=== PATIENT | female | born 1980 | race Caucasian/White ===

== ENCOUNTER 2018-05-08 19:22 | Emergency (ER) | payer OTHER ==
[2018-05-08 19:30] VITALS: BP 110/73; PULSE 90; TEMP 98.7; BMI 20.1
[2018-05-08 20:28] LABS: PH,URINE 6.5 (4.5-8); URINE APPEARANCE Clear; URINE BILIRUBIN Negative (NEGATIVE); URINE COLOR Yellow; URINE GLUCOSE (UA) Negative (NEGATIVE); URINE KETONE Negative (NEGATIVE); URINE LEUK ESTERASE Negative (NEGATIVE); URINE NITRITE Negative (NEGATIVE); URINE PROTEIN Negative (NEGATIVE); URINE UROBILINOGEN 0.2 (0.2-1.0)
[2018-05-08 20:40] LABS: EPI CELLS 1+ /HPF; URINE WBC 0-2 (0-5)
[2018-05-08 20:41] LABS: URINE BACTERIA NONE SEEN /hpf (NEGATIVE)
[2018-05-08 20:42] LABS: ALBUMIN 4.6 g/dl (3.5-5.0); ALK PHOS 39 U/L (32-92); ANION GAP 9 MMOL/L (8-16); BILIRUBIN,TOTAL 0.7 mg/dl (0.2-1.0); BLOOD UREA NITROGEN 13 mg/dl (7-18); CALCIUM 9.4 mg/dl (8.4-10.2); CHLORIDE 100 mmol/L (98-107); CO2 26 mmol/L (22-28); CREATININE 0.7 mg/dl (0.6-1.3); GLUCOSE,RANDOM 92 mg/dl (74-106); POTASSIUM 3.7 mmol/L (3.5-5.1); SGOT/AST 28 U/L (10-42); SGPT/ALT 26 U/L (10-40); SODIUM 135 mmol/L (136-145); TOT PROT 7.2 g/dl (6.4-8.3)
[2018-05-08 20:45] LABS: BASO % 0.5 % (0-2.0); EOS % 0.5 % (0-4.5); HEMATOCRIT 40.8 % (32.4-45.2); HEMOGLOBIN 13.9 GM/dl (10.7-15.3); LYMPH % 27.8 % (8-40); MCH 31.9 pg (25.7-33.7); MCHC 34.2 g/dl (32.0-36.0); MEAN CELL VOLUME 93.4 fl (80-96); MEAN PLT VOLUME 9.1 fl (7.5-11.1); MONO % 5.8 % (3.8-10.2); NEUT % 65.4 % (42.8-82.8); PLATELET COUNT 227 K/MM3 (134-434); RBC 4.37 M/mm3 (3.60-5.2); RDW 11.9 % (11.6-15.6); WHITE BLOOD COUNT 10.6 K/mm3 (4.0-10.8)
[2018-05-08 20:47] LABS: INR 1.08 (0.82-1.09); PROTHROMBIN TIME (PATIENT) 12.1 SEC (10.2-13.0)
--- NOTE | 2018-05-08 21:09 | PDOC ---
History of Present Illness - History of Present Illness Initial Comments: CHRIST 37 YOF, 8 wks () with pmh of roderick thyroiditis (on synthroid) who presents to the emergency department complaining of intermittent vaginal spotting since earlier today. Patient complains of intermittent bright red streaking with mild light cramping. Patient had 1st trimester US 05/04/18 with OBGYN that showed subchorionic hematoma and live IUP. Patient notes it was a natural , with prior IVF but not currently. Denies n/v/d, chest pain and SOB, faintness/dizziness, back pain, and urinary changes. No NKDA. Denies EtOh, drug, tobacco use. 05/08/18 21:55 <Carol De Dios - Last Filed: 05/08/18 21:55> - General History Source: Patient Exam Limitations: No Limitations <Shawanda Balderrama - Last Filed: 05/08/18 22:59> - General Chief Complaint: Vaginal Bleeding Stated Complaint: SPOTTING Time Seen by Provider: 05/08/18 19:33 Past History <Carol De Dios - Last Filed: 05/08/18 21:55> - Past Medical History COPD: No Thyroid Disease: Yes (HASHIMOTOS) - Suicide/Smoking/Psychosocial Hx Smoking History: Never smoked <Shawanda Balderrama - Last Filed: 05/08/18 22:59> - Past Medical History Allergies/Adverse Reactions: Allergies Allergy/AdvReac Type Severity Reaction Status Date / Time nickel Allergy Verified 05/08/18 19:24 thimerosal Allergy Verified 05/08/18 19:24 GOLD Allergy Uncoded 05/08/18 19:25 Home Medications: Ambulatory Orders Levothyroxine [Synthroid -] 75 mcg PO DAILY 05/08/18 Multivitamins [Tab-A-Vit -] 1 tab PO DAILY 05/08/18 Review of Systems - Review of Systems Able to Perform ROS?: Yes Comments:: Constitutional: no fevers or chills. HEENT: no headache or dizziness. No congestion. No visual/hearing disturbances. CVS: no cp or syncope. Resp: no sob. No cough. Abdomen: +mild abdominal cramping. no nausea or vomiting. Genitourinary: +Vaginal bleeding. no urinary sx, hematuria. MUSCULOSKELETAL: No joint pain and swelling. No neck or back pain. SKIN: no redness or skin changes, no discharge, no rash. No wounds. Hematologic: no easy bruising/bleeding. NEUROLOGIC: No headache, dizziness, LOC or altered mental status. No weakness, numbness or tingling. All other systems reviewed and negative, or as documented in HPI. 05/08/18 21:56 <Carol De Dios - Last Filed: 05/08/18 21:55> *Physical Exam - Vital Signs Last Vital Signs Temp Pulse Resp BP Pulse Ox 98.7 F 90 16 110/73 100 05/08/18 19:26 05/08/18 19:26 05/08/18 19:26 05/08/18 19:26 05/08/18 19:26 - Physical Exam Comments: General: Well appearing, awake and alert, NAD. HEENT: NCAT, PERRL, EOMI, clear conjunctiva, anicteric, moist mucus membranes, clear oropharynx, no oral lesions.. Neck: neck supple, FROM Resp: CTAB, normal and even respirations, no respiratory distress CVS: RRR, no murmurs, 2+ peripheral pulses throughout, no peripheral edema Abdomen: soft, NTND, no peritoneal signs. Female : normal external genitalia, no lesions, scant brown discharge in vaginal vault, no CMT, no adnexal tenderness. Smooth and pink cervix, closed. Back: no CVA tenderness. nontender, normal inspection and ROM MSK: no edema, IZQUIERDO x4, ROM intact. No clubbing or cyanosis. normal bulk and tone. Extrem: no calf tenderness Neuro: alert, oriented appropriately; no focal neurologic deficits Skin: warm and well perfused, cap refill <2 sec, normal color 05/08/18 21:56 <Carol De Dios - Last Filed: 05/08/18 21:55> - Vital Signs Last Vital Signs Temp Pulse Resp BP Pulse Ox 98.7 F 90 16 110/73 100 05/08/18 19:26 05/08/18 19:26 05/08/18 19:26 05/08/18 19:26 05/08/18 19:26 <Shawanda Balderrama - Last Filed: 05/08/18 22:59> ED Treatment Course - LABORATORY CBC & Chemistry Diagram: 05/08/18 20:20 05/08/18 20:15 - ADDITIONAL ORDERS Additional order review: Laboratory Results 05/08/18 05/08/18 05/08/18 20:20 20:15 20:15 PT with INR 12.1 INR 1.08 Sodium 135 L Potassium 3.7 Chloride 100 Carbon Dioxide 26 Anion Gap 9 BUN 13 Creatinine 0.7 Creat Clearance w eGFR > 60 Random Glucose 92 Calcium 9.4 Total Bilirubin 0.7 AST 28 ALT 26 Alkaline Phosphatase 39 Total Protein 7.2 Albumin 4.6 Urine Color Yellow Urine Appearance Clear Urine pH 6.5 Ur Specific [employer] 1.010 Urine Protein Negative Urine Glucose (UA) Negative Urine Ketones Negative Urine Blood Trace-lysed H Urine Nitrite Negative Urine Bilirubin Negative Urine Urobilinogen 0.2 Ur Leukocyte Esterase Negative Urine RBC 2-5 Urine WBC 0-2 Ur Epithelial Cells 1+ Urine Bacteria None seen 05/08/18 20:20 RBC 4.37 MCV 93.4 MCHC 34.2 RDW 11.9 MPV 9.1 Neutrophils % 65.4 Lymphocytes % 27.8 Monocytes % 5.8 Eosinophils % 0.5 Basophils % 0.5 <Carol De Dios - Last Filed: 05/08/18 21:55> - LABORATORY CBC & Chemistry Diagram: 05/08/18 20:20 05/08/18 20:15 - ADDITIONAL ORDERS Additional order review: Laboratory Results 05/08/18 05/08/18 05/08/18 20:20 20:15 20:15 PT with INR 12.1 INR 1.08 Sodium 135 L Potassium 3.7 Chloride 100 Carbon Dioxide 26 Anion Gap 9 BUN 13 Creatinine 0.7 Creat Clearance w eGFR > 60 Random Glucose 92 Calcium 9.4 Total Bilirubin 0.7 AST 28 ALT 26 Alkaline Phosphatase 39 Total Protein 7.2 Albumin 4.6 Urine Color Yellow Urine Appearance Clear Urine pH 6.5 Ur Specific [employer] 1.010 Urine Protein Negative Urine Glucose (UA) Negative Urine Ketones Negative Urine Blood Trace-lysed H Urine Nitrite Negative Urine Bilirubin Negative Urine Urobilinogen 0.2 Ur Leukocyte Esterase Negative Urine RBC 2-5 Urine WBC 0-2 Ur Epithelial Cells 1+ Urine Bacteria None seen 05/08/18 20:20 RBC 4.37 MCV 93.4 MCHC 34.2 RDW 11.9 MPV 9.1 Neutrophils % 65.4 Lymphocytes % 27.8 Monocytes % 5.8 Eosinophils % 0.5 Basophils % 0.5 - RADIOLOGY Radiology Studies Ordered: Category Date Time Status TRANSVAGINAL US PREG [US] Stat Ultrasound 05/08/18 19:33 Ordered <Shawanda Balderrama - Last Filed: 05/08/18 22:59> Medical Decision Making - Medical Decision Making 05/08/18 21:12 37 YOF with roderick's presenting with Vaginal spotting today, mild cramping. last TVUS 5 days ago, +subchorionic. DDx female: ectopic , miscarriage, demise, subchorionic hematoma, UTI in in . Fibroid uterus, vaginitis, infection , electrolyte/metabolic derangements. Vital signs reviewed, wnl. pelvic exam as documented, no bleeding currently Prior notes reviewed, including admissions, discharges and consultations. laboratory results and imaging reviewed, basic labs and lytes wnl, coags normal UA_trace blood, epis, small wbcs, no bacteria . urinary sx, defer tx for now +beta hcg >01343m. txs with positive RH factor, no rhogam needed ED course: no analgesia required, no sx and well appearing TVUS to r/o miscarriage/progressive chorionic hematoma. TVUS with probable embryonic demise, no FHR noted, no FF, small subchorionic hematoma present Call out to Dr Landy Fowler, left message, pt will followup with email and communication with her doctor left message with RN Dispo: Pt to be discharged in stable condition. Patient and family made aware of impression and plan, return precautions discussed (including but not limited to worsening pain or symptoms), fevers, or signs of infection, chest pain, respiratory distress, inability to tolerate oral intake, dehydration, syncope, or neurologic changes). Follow up with PMD and/or specialist as recommended (Dr Fowler, OB specialist), follow up information provided, take medications as instructed for duration of time. continue with supportive care, avoid triggers and precipitants. All questions answered to patient's satisfaction and expressed understanding and comfort with this. 05/08/18 22:58 <Shawanda Balderrama - Last Filed: 05/08/18 22:59> *DC/Admit/Observation/Transfer - Attestations Scribe Attestion: 05/08/18 21:39 Documentation prepared by Carol De Dios, SCRIBE, acting as medical geneticist for Shawanda Balderrama MD. <Carol De Dios - Last Filed: 05/08/18 21:55> - Discharge Dispostion Decision to Admit order: No - Attestations Physician Attestion: 05/08/18 21:11 I, Shawanda Balderrama MD, attest that this document has been prepared under my direction and personally reviewed by me in its entirety. I further attest, that it accurately reflects all work, treatment, procedures and medical decision -making performed by me. <Shawanda Balderrama - Last Filed: 05/08/18 22:59> Diagnosis at time of Disposition: Miscarriage, threatened, early - Discharge Dispostion Disposition: HOME Condition at time of disposition: Stable - Referrals Referrals: ON STAFF,NOT [Primary Care Provider] - Landy Fowler MD [Non Staff, Medical] - - Patient Instructions Printed Discharge Instructions: DI for Miscarriage, DI for Threatened Additional Instructions: Your laboratory / imaging results were significant for normal labs, Rh positive beta hcg is >99074 your ultrasound suggests possible miscarriage vs demise. please follow up with your tax processor, Dr. Fowler, we have called the office with update. Follow up with your physician and consultants as instructed, take your medications as instructed including tylenol for pain. Return if worsening symptoms including fevers, headache, vomiting, visual or hearing disturbances, abdominal pain, chest pain, shortness of breath, syncope, dehydration, inability to take things by mouth/vomiting, altered mental status, or worsening concerning symptoms. monitor for bleeding and worsening pain, given the possibility of miscarriage with ultrasound - Post Discharge Activity
== END 2018-05-08 23:14 | disposition home or self-care (01) ==
LOC: FER 19:22
DX: O26.891 Other specified pregnancy related conditions, first trimester (principal); Z3A.01 Less than 8 weeks gestation of pregnancy; O20.0 Threatened abortion
CPT/HCPCS: 36415; 76817-TC; 80053; 81003; 81015; 84702; 85025; 85610; 86850; 86900; 86901; 99282-25